=== PATIENT | male | born 1990 | race Caucasian/White ===

== ENCOUNTER 2019-02-20 21:47 | Emergency (ER) | payer SELFPAY ==
[~2019-02-20] VITALS: Ht 170.2 cm; Wt 103.5 kg
[2019-02-20 21:50] VITALS: BP 154/86
--- NOTE | 2019-02-20 22:14 | NUR ---
PT C/O OF EPIGASTRIC PAIN SINCE 5PM. PAIN LEVEL 10/10, BURNING PAIN AND TENDER TO TOUCH. DENIES N/V/D. LAST BM TODAY 02/20/2019. PT STATES "HE FEELS BETTER STANDING UP." WAITING FOR ERMD TO EVALUATE PT.
[2019-02-20] MEDS ORDERED: FAMOTIDINE 20 MG/2 ML VIAL IVP ONE (22:25)
[2019-02-20 22:40] LABS: APPEARANCE,URINE CLEAR (CLEAR); BILIRUBIN,URINE NEGATIVE (NEGATIVE); BLOOD, URINE 3+ (NEGATIVE); COLOR,URINE YELLOW (YELLOW); LEUKOCYTE ESTERASE ,URINE NEGATIVE (NEGATIVE); NITRITE, URINE NEGATIVE (NEGATIVE); UGLUCOSE NEGATIVE (NEGATIVE)
[2019-02-20 22:42] LABS: BASOPHILS # (AUTO) 0.1 K/uL (0.00-0.22); BASOPHILS % (AUTO) 0.5 % (0.0-2.0); EOSINOPHILS # (AUTO) 0.2 K/uL (0-0.4); EOSINOPHILS % (AUTO) 1.1 % (0.0-4.0); HEMATOCRIT 43.5 % (36-52); HEMOGLOBIN 14.8 g/dL (12.0-18.0); LYMPHOCYTES # (AUTO) 3.3 K/uL (2.0-11.5); LYMPHOCYTES % (AUTO) 21.9 % (20.5-51.1); MEAN CORPUSCULAR HEMOGLOBIN 29 pg (27-31); MEAN CORPUSCULAR HGB CONC 34 g/dL (33-37); MONOCYTES # (AUTO) 0.9 K/uL (0.8-1.0); NEUTROPHILS # (AUTO) 10.5 K/uL (1.8-7.7); NEUTROPHILS % (AUTO) 70.5 % (42.2-75.2); PLATELET COUNT (AUTO) 344 K/uL (140-450); RED BLOOD CELL COUNT(AUTO) 5.11 MIL/uL (4.20-6.10); RED CELL DISTRIBUTION WIDTH 14.5 % (11.6-13.7); WHITE BLOOD COUNT (AUTO) 14.9 K/uL (4.8-10.8)
[2019-02-20 22:51] LABS: RBC,URINE 20-50 /HPF (0-5); WBC,URINE 0-5 /HPF (0-5)
[2019-02-20 23:07] LABS: ANION GAP 12.8 (8-16); CARBON DIOXIDE 28.8 mmol/L (21-32); POTASSIUM 3.6 mmol/L (3.5-5.1)
[2019-02-20 23:13] LABS: ALBUMIN 3.9 g/dL (3.4-5.0); TOTAL BILIRUBIN 0.4 mg/dL (0.0-1.0)
[2019-02-20] MEDS ORDERED: MORPHINE SULFATE 4 MG/ML SYR IVP ONE (23:15)
--- NOTE | 2019-02-21 00:10 | NUR ---
PT STATED HE FEELS BETTER, PAIN LEVEL 0/10. VSS
--- NOTE | 2019-02-21 00:37 | NUR ---
PT TAKEN TO CT
--- NOTE | 2019-02-21 01:30 | NUR ---
Adriana batres in [facility] - 02/21/19 at 0244 by JOHANA PT RESTING COMFORTABLY IN BED, EYES OPEN. VSS. DENIES PAIN
--- NOTE | 2019-02-21 01:45 | NUR ---
PT RESTING COMFORTABLY IN BED, EYES OPEN. VSS. DENIES PAIN 0/10.
[2019-02-21] MEDS ORDERED: cefTRIAXone 1,000 MG VIAL ONE (02:00)
--- NOTE | 2019-02-21 02:44 | NUR ---
Patient discharged BY DR. ARELLANO with v/s stable. Written and verbal after care instructions given and explained. Patient alert, oriented and verbalized understanding of instructions. Ambulatory with steady gait. All questions addressed prior to discharge. ID band removed. Patient advised to follow up with PMD. Rx of CIPROFLOXACIN AND NAPROSYN given. Patient educated on indication of medication including possible reaction and side effects. Opportunity to ask questions provided and answered.
[2019-02-21 02:46] VITALS: BP 123/72
== END 2019-02-21 02:44 | disposition home or self-care (01) ==
LOC: MED 21:47
DX: K80.80 Other cholelithiasis without obstruction (principal); N30.90 Cystitis, unspecified without hematuria
CPT/HCPCS: 36415; 74176; 76705; 80053; 81001; 82150; 83690; 85025; 87086; 96365; 96375; 99284; J0696; J2270; J3490; Q0092